=== PATIENT | male | born 2005 | race Caucasian/White ===

== ENCOUNTER 2024-11-13 21:20 | Emergency (ER) | payer OTHER, SELFPAY ==
[2024-11-13 21:26] VITALS: BP 137/77; PULSE 95; RESP 18; TEMP 36.7; O2SAT 98; BMI 33.0
[2024-11-13 21:46] LABS: IDNOW Serial# 6674DD1D; Strep A Nucleic Acid Negative (Negative)
[2024-11-13 22:17] LABS: Influenza A PCR NEGATIVE (Negative); Influenza B PCR NEGATIVE (Negative); Resp Syncy Virus RNA Qual PCR NEGATIVE (Negative); SARS COV2 PCR INHOUSE NEGATIVE (Negative)
--- NOTE | 2024-11-14 00:01 | ED_ITS ---
HPI - General Adult General Chief complaint: Upper Respiratory Symptoms Stated complaint: congestion, mucus, loss of taste & smell Time Seen by Provider: 11/13/24 23:59 Source: patient Mode of arrival: ambulatory History of Present Illness ED Provider: Joey Andrews HPI narrative: 19 yold male presents to the ED for Coughing, sore throat, body aches, chills, and subjective fever. Patient denies any chest pain, shortness of breath, coughing up blood, abdominal pain, genitourinary symptoms, rash, or diarrhea. Patient admits to loss of smell and taste. Patient is a [employer]. Related Data Previous Rx's ?Medication ?Instructions ?Recorded benzonatate 200 mg capsule 200 mg PO TID PRN cough 5 days #15 11/14/24 caps Allergies Allergy/AdvReac Type Severity Reaction Status Date / Time No Known Allergies Allergy Verified 11/13/24 21:27 Review of Systems Review of Systems: sore throat, coughing, bodyaches, and chills Yes all other systems are reviewed and are negative [facility] Social History Social History Advance Directives: No Advance Directives Information Provided: Yes Do you have a plan to hurt others: No Plan Physical Exam ED Vital Signs: Vital Signs - 24 hr 11/13/24 21:26 Temperature 98.0 F Pulse Rate 95 Respiratory Rate 18 Blood Pressure 137/77 Pulse Oximetry 98 Oxygen Delivery Method Room Air BMI result Body Mass Index 33.0 Const General: cooperative, healthy appearing, comfortable, no acute distress, well developed, alert, awake and Physically active Orientation/consciousness: patient oriented x3 HENMT Head: Yes normal to inspection, Yes No palpable skull fracture present, Yes normocephalic and Yes atraumatic Ears: hearing grossly normal bilaterally, external ears normal, TM's normal bilaterally, TM normal on the right, TM normal on the left, EAC's normal, mastoids normal and no periauricular adenopathy General nose exam: Normal external nose present and Normal nares present Face and sinus: Yes normal facial exam, Yes sinuses nontender and Yes face symmetric Throat: Yes posterior oropharynx normal, Yes tonsils normal and Yes uvula midline Eyes General: appearance normal, both eyes and all related structures Neck Neck: Yes normal visual inspection, Yes full ROM, Yes no lymphadenopathy, Yes no meningeal signs, Yes trachea midline, Yes supple, No anterior neck swelling and No tender Chest Chest palpation & inspection: normal inspection of the chest and normal palpation of entire chest wall Resp Effort & Inspection: normal respiratory effort and able to speak in complete sentences Auscultation: clear to auscultation bilaterally Cardio Jugular venous distension: no JVD Heart sounds: S1 normal heart sound present and S2 normal heart sound present GI Inspection: Yes normal to inspection Palpation (GI): Soft to palpation, not firm, nontender, no guarding and not rigid General: Yes no CVA tenderness Back/Spine/Pelvis Back: no CVA tenderness and No back tenderness Skin General skin exam: no rashes or lesions noted, elasticity normal and turgor normal Neuro General: patient oriented x3, gait normal, tone normal, moves all extremities, Normal light touch and pain sensation, no meningeal signs, no focal motor deficits, CN's II-XI intact bilaterally and normal sensation to monofilament Extrem General: Yes normal to inspection, Yes full ROM and Yes capillary refill normal Psych Appearance: grossly normal, well kempt and not disheveled Medical Decision Making Medical Decision Making [facility] Narrative: 19-year-old male presents to ED for URI symptoms such as sore throat, cough, body aches, chills, subjective fever. Not suspecting peritonsillar abscess, Sean's angina, retropharyngeal abscess, pneumonia hypoxia, respiratory failure, pericarditis,MA, ChF, PE, or any other life-threatening etiology. Patient explained worrisome signs and informed to return to the ED immediately. Differential Diagnosis Differential Diagnoses: The differential diagnosis associated with the presentation includes ( COVID influenza RSV strep) Admission/Observation Consideration of admission/observation: Escalation of care including admiss ion/observation considered Lab Data [facility] Lab Attestation statement: I reviewed the patient's lab results. Labs: Lab Results 11/13/24 Range/Units 21:35 Influenza Type A (PCR) NEGATIVE (Negative) Influenza Type B (PCR) NEGATIVE (Negative) RSV RNA Qual (PCR) NEGATIVE (Negative) SARS-CoV-2 RNA (RT-PCR) NEGATIVE (Negative) S. pyogenes GrpA BRITT Negative (Negative) Discharge Plan Discharge Clinical Impression: URI (upper respiratory infection) Patient Disposition: Home, Self-Care Instructions: Upper Respiratory Infection (ED) Additional Instructions: recommend follow up with primary care provider. Return to the ED immediately for any chest pain, shortness of breath, drooling, change in voice, inability tolerate solid food /liquid, rash, abdominal pain, blood in stool, pain on urination, blood in urine, worsening sore throat, headache, or any other concerning symptoms. Prescriptions: New benzonatate 200 mg capsule 200 mg PO TID PRN (Reason: cough) 5 Days Qty: 15 0RF Stand Alone Forms: Work/School Release Interventions: ED Discharge Assessment Last Done: 11/14/24 00:52 Discharge Date/Time: 11/14/24 00:53 Print Language: Jordanian
[2024-11-14 00:20] VITALS: BP 118/70; PULSE 91; RESP 16; TEMP 37.2; O2SAT 98
[2024-11-14 00:52] VITALS: BP 118/70; PULSE 91; RESP 16; TEMP 37.2; O2SAT 98
== END 2024-11-14 00:53 | disposition home or self-care (01) ==
PROVIDERS: Emergency Provider Emergency Medicine; PCP Internal Medicine
DX: J06.9 Acute upper respiratory infection, unspecified (principal); R05.9 Cough, unspecified; J02.9 Acute pharyngitis, unspecified; M79.10 Myalgia, unspecified site; R50.9 Fever, unspecified; Z03.818 Encounter for observation for suspected exposure to other biological agents ruled out
CPT/HCPCS: 0241U; 87651; 99282; 99283

== ENCOUNTER 2025-08-03 22:37 | Emergency (ER) | payer OTHER, SELFPAY ==
--- NOTE | ~2025-08-03 | XR_ITS ---
CLINICAL HISTORY: cough 1 view chest x-ray Comparison: None provided Findings: No consolidation, pleural effusion or pneumothorax. Normal cardiomediastinal silhouette. IMPRESSION: No acute findings. This document has been electronically signed by: Gabriel Diego MD on 08/04/2025 02:08:49
[2025-08-03 22:50] VITALS: BP 137/85; PULSE 91; RESP 20; TEMP 37.1; O2SAT 95; BMI 32.8
[2025-08-03 23:48] LABS: Resp Syncy Virus RNA Qual PCR NEGATIVE (Negative); SARS COV2 PCR INHOUSE NEGATIVE (Negative)
--- OUTSIDE RECORDS SUMMARY | 2025-08-04 00:58 | XMS_ITS | Clinical Summary ---
Author Organization [facility] Address [address] [place] [address] Care Team Providers Care Electrical Products Engineer Name Role Phone Unavailable Primary Care Provider Unavailabl e Allergies No known active allergies Medications No known medications Social History Tobacco Use Types Packs/Day Years Used Date Smoking Tobacco: Never Assessed Sex and Gender Information Value Date Recorded Sex Assigned at Male 12/11/2023 8:40 PM EDT Legal Sex Male 6:48 PM EST Gender Identity Male 12/11/2023 8:40 PM EDT Sexual Orientation Heterosexual (straight) 12/10 8:40 PM EDT Last Filed Vital Signs Vital Sign Reading Time Taken Comments Blood Pressure 132/72 12/11/2023 7:27 PM EDT Pulse 81 12/11/2023 7:27 PM EDT Temperature 36.1 C (97 F) 12/11/2023 7:27 PM EDT Respiratory Rate 18 12/11/2023 7:27 PM EDT Oxygen Saturation 99% 12/11/2023 7:27 PM EDT Inhaled Oxygen Concentration - - Weight - - Height - - Body Mass Index - - Plan of Treatment Health Maintenance Due Date Last Done Comments Hepatitis C Virus Screening 2004 HIV Screening 2017 HPV Vaccines (1 - Male 3-dos e series) 2019 DTaP/Tdap/Td Vaccines (1 - Tdap) 2023 Hepatitis B Vaccines (1 of 3 - 19+ 3-dose series) 2023 Influenza Vaccine 03/06/2025 COVID-19 Vaccine ( - 2024-2 6 season) 2025 Pneumococcal Vaccine: Pediat tiffanie (0-5 Years) and At-Risk Patients (6 to 49 Years) Aged Out No longer eligible b ased on patient's age to complete this topic Insurance [facility] [address] [facility] WORKER'S COMP Member Subscriber Plan / Payer (Ef fective 2023-Present) Name:Barron Avalos Relation to Subscriber:Employee Name:[employer] AUTHORITY Date of :1900 Address: [address] [place] [id number] Payer ID:Not on file Group ID:Not on file Type:Workers Compensation Address: [address] [place] [address]
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
== END 2025-08-04 07:15 | disposition home or self-care (01) ==
PROVIDERS: Emergency Provider Emergency Medicine
DX: R05.9 Cough, unspecified (principal); Z03.818 Encounter for observation for suspected exposure to other biological agents ruled out
CPT/HCPCS: 71045; 87637; 99282; 99283